=== PATIENT | male | born 1960 | race Caucasian/White ===

== ENCOUNTER 2020-08-17 06:40 | Emergency (ER) | payer OTHER ==
[~2020-08-17] VITALS: Ht 182.9 cm; Wt 90.9 kg
[2020-08-17 06:42] VITALS: BP 142/83
--- NOTE | 2020-08-17 06:49 | PHYS DOC ---
General Adult EDM: Chief Complaint: LACERATION/AVULSION HPI: HPI: 59-year-old male who denies any significant past medical history presents the ED with complaints of laceration to his dominant right dorsal hand that he sustained around 6 AM, just prior to arrival. Patient reports he was at work and smashed his hand between a trash can and a metal grate. Reports no decreased range of motion or brisk bleeding. No prior injury to this hand. Reports tetanus is not up-to-date, has not had this vaccine in over 10 years. No history of diabetes, chronic steroid use or immunocompromise state with poor wound healing complications. Review of Systems: Review of Systems: Constitutional: Denies fever or chills. [] Eyes: Denies change in visual acuity. [] HENT: Denies nasal congestion or sore throat. [] Respiratory: Denies cough or shortness of breath. [] Cardiovascular: Denies chest pain or edema. [] GI: Denies abdominal pain, nausea, vomiting, bloody stools or diarrhea. [] : Denies dysuria. [] Musculoskeletal: Denies back pain or joint pain. [] Integument: Denies skin color changes, diaphoresis Neurologic: Denies headache, focal weakness or sensory changes. [] Endocrine: Denies polyuria or polydipsia. [] Lymphatic: Denies swollen glands. [] Psychiatric: Denies depression or anxiety. [] Heart Score: C/O Chest Pain: No Risk Factors: Risk Factors: DM, Current or recent (<one month) smoker, HTN, HLP, family history of CAD, obesity. Risk Scores: Score 0 - 3: 2.5% MACE over next 6 weeks - Discharge Home Score 4 - 6: 20.3% MACE over next 6 weeks - Admit for Clinical Observation Score 7 - 10: 72.7% MACE over next 6 weeks - Early Invasive Strategies Physical Exam: PE: Constitutional: Well developed, well nourished, no acute distress, non-toxic appearance, borderline hypertension HENT: Normocephalic, atraumatic, Eyes: EOMI, conjunctiva normal, no discharge. Neck: Normal range of motion, supple, Cardiovascular: S1/2 present, regular rhythm Lungs & Thorax: Speaking in full sentences, bilateral equal chest rise, no tachypnea or increased work of breathing Abdomen: soft, no tenderness, Skin: Warm, dry, no erythema, no rash, lei skin (sun exposure) Extremities: no cyanosis, 4 cm V-shaped laceration over patient's dorsum of right hand -no active bleeding, appears to be avulsion injury very superficial, do not suspect extensor tendon injury given complete extension of all 5 fingers/abduction of right thumb, equal radial pulses, Neurologic: Alert and oriented X 3, normal motor function, normal sensory function, no focal deficits noted. [] Psychologic: Affect normal, judgement normal, mood normal. [] EKG: EKG: [] Radiology/Procedures: Radiology/Procedures: []IMAGING REPORT Signed PATIENT: DONALDO SEARS ACCOUNT: [id number] : 1960 LOCATION: ER AGE: 59 SEX: M EXAM STATUS: PRE ER ORD. PHYSICIAN: VIRI BROWN DO REASON: crush injury PROCEDURE: HAND LEFT 3V XR HAND_LEFT 3 VIEWS DATE: 08/17/2020 6:59 AM INDICATION: crush injury, pain COMPARISON: None. FINDINGS: Bones: There is no evidence of acute fracture or dislocation. Joints: The joint spaces are normal. Miscellaneous: None. IMPRESSION: No evidence of acute fracture. Electronically signed by: Dasia Matson MD (08/17/2020 7:10 AM) [id number] DICTATED and SIGNED BY: DASIA MATSON MD DATE: 08/17/20 [id number] Indication: right dorsal hand laceration Procedure: The patient was placed in the appropriate position and anesthesia around the V-shaped laceration with bupivacaine . The area was then copiously irrigated. The laceration was closed with 4-0 and 5-0 nylon, total of 7 sutures. The wound area was then dressed with triple antibiotic ointment and sterile dressing. Total repaired wound length: 4 cm. Other Items: None -patient with full range of motion in flexion/extension of MCP joints (and hand joints including wrist/PIP/DIP/IP) abduction and adduction of the fingers The patient tolerated the procedure . Complications: None. Course & Med Decision Making: Course & Med Decision Making Pertinent Labs and Imaging studies reviewed. (See chart for details) Concern for avulsion laceration over patient's right dominant hand, do not suspect extensor tendon injury given range of motion/physical exam on presentation, before and after local anesthesia, and before and after laceration repair with no decreased extension. Given superficial nature extensor tendons patient was educated to follow-up with hand surgery within 1 week for reassessment. Wound care instructions given with suture removal in 7 to 10 days. Patient tolerated suture repair without any complications. Tetanus updated in ED. Patient also with borderline, asymptomatic hypertension, no chest pain, dyspnea or confusion, per ACEP no indication for rx at this time. Will discharge home with strict ED return precautions were given for rash, fever, worsening pain, purulent drainage or neurologic deficits. Encouraged urgent outpatient follow-up with PMD and hand surgery. Life-threatening processes were considered but are low suspicion at this time, given history, physical exam and ED workup. Pt was educated on all prescription medications and adverse effects. All patient's questions were answered and pt was stable at time of discharge. Life/limb-threatening differential includes but is not limited to, trauma (fracture, dislocation, laceration, compartment syndrome, tendon or ligament i njury), neurovascular injury or deficit, infection (osteomyelitis, abscess, cellulitis, septic arthritis, necrotizing fasciitis), deep vein thrombosis, renal/cardiac/liver disease, medication adverse effect, lymphedema/anasarca, vascular insufficiency or malignancy, I spoken with the patient and her caregivers. I explained the patient's condition, diagnoses and treatment plan based on the information available to me at this time. I have answered the patient and her caregiver's questions and addressed any concerns. The patient and her caregivers have a good understanding of patient's diagnosis, condition and treatment plan as can be expected at this point. Vital signs have been stable. Patient's condition is stable and appropriate for discharge from the emergency department. Patient will pursue further outpatient evaluation with primary care physician or other designated or consulting physician as outlined in the discharge instructions. The patient and/or caregivers are agreeable to this plan of care and follow-up instructions have been explained in detail. The patient and/or caregivers have received these instructions in written form and have expressed an understanding of the discharge instructions. The patient and/or caregivers are aware that any significant change of condition or worsening of symptoms should prompt immediate return to this or the closest emergency department or call to 911. Rob Disclaimer: Dragon Disclaimer: This electronic medical record was generated, in whole or in part, using a voice recognition dictation system. Departure Departure Impression: Primary Impression: Laceration of right hand Additional Impressions: Need for Tdap vaccination Hypertension Disposition: 01 DC HOME SELF CARE/HOMELESS Condition: STABLE Referrals: JAD OSEGUERA MD followup with pcp in 7-10 days for suture removal FOLLOW UP WITH FAMILY MEDICINE: Family Medicine Address: [address] [place] [address] Patient Instructions: Hypertension, Sutured Wound Care, VIS, Tetanus, Diphtheria (Td); Tetanus, Diphtheria, Pertussis (Tdap) - [facility] Additional Instructions: [facility] WITHIN ONE WEEK Appointments may be made with Benny Roberto MD, Rashi Barragan MD, Jan Trevino MD or Jon Luu MD, by calling [phone] EMERGENCY DEPARTMENT GENERAL DISCHARGE INSTRUCTIONS Thank you for coming to [facility] Emergency Department (ED) today and trusting us with you care. We trust that you had a positive experience in our Emergency Department. If you wish to speak to the department management, you may call the Director at [phone]. YOUR FOLLOW UP INSTRUCTIONS ARE FOLLOWS: 1. Do you have a private Doctor? If you do not have a private doctor, please ask for a resource list of physicians or clinics that may be able to assist you with follow up care. 2. The Emergency Physicain has interpreted your x-rays. The X-Ray specialist will also review them. If there is a change in the findings, you will be notified in 48 hours when at all possible. 3. A lab test or culture has been done, your results will be reviewed and you will be notified if you need a change in treatment. ADDITIONAL INSTRUCTIONS AND INFORMATION: 1. Your care today has been supervised by a physician who is specially trained in emergency care. Many problems require more than one evaluation for a complete diagnosis and treatment. We recommend that you schedule your follow up appointment as recommended to ensure complete treatment of you illness or injury. If you are unable to obtain follow up care and continue to have a problem, or if your condition worsens, we recommend that you return to the ED. 2. We are not able to safely determine your condition over the phone nor are we able to give sound medical advice over the phone. For these safety reasons, if you call for medical advice we will ask you to come to the ED for further evaluation. 3. If you have any questions regarding these discharge instructions please call the ED at [phone]. SAFETY INFORMATION: In the interest of safety, wellness, and injury prevention; we encourage you to wear your sealbelt, if you smoke; quite smoking, and we encourage family to use a protective helmet for bicycling and other sporting events that present an increased risk for head injury. IF YOUR SYMPTOMS WORSEN OR NEW SYMPTOMS DEVELOP, OR YOU HAVE CONCERNS ABOUT YOUR CONDITION; OR IF YOUR CONDITION WORSENS WHILE YOU ARE WAITING FOR YOUR FOLLOW UP APPOINTMENT; EITHER CONTACT YOUR PRIMARY CARE DOCTOR, THE PHYSICIAN WHOSE NAME AND NUMBER YOU WERE GIVEN, OR RETURN TO THE ED IMMEDIATELY. VIRI BROWN DO Aug 17, 2020 06:49
--- NOTE | 2020-08-17 07:12 | RAD ---
XR HAND_LEFT 3 VIEWS DATE: 08/17/2020 6:59 AM INDICATION: crush injury, pain COMPARISON: None. FINDINGS: Bones: There is no evidence of acute fracture or dislocation. Joints: The joint spaces are normal. Miscellaneous: None. IMPRESSION: No evidence of acute fracture. Electronically signed by: Ha Matson MD (08/17/2020 7:10 AM) [id number]
[2020-08-17] MEDS ORDERED: NEOMY/BACITR/POLYMYXIN OINT PACKET. TP ONE (07:15)
[2020-08-17] MEDS ORDERED: DIPH,PERTUSS(ACELL),TET VAC/PF 0.5 ML SYRINGE. VAX IM ONE (07:30)
[2020-08-17] MEDS ORDERED: LIDOCAINE 1% Multi-Dose 20 ML VIAL. INJ ONE (07:30)
== END 2020-08-17 08:25 | disposition home or self-care (01) ==
LOC: ER 06:40
DX: S61.411A Laceration without foreign body of right hand, initial encounter (principal); I10 Essential (primary) hypertension; Y29.XXXA Contact with blunt object, undetermined intent, initial encounter; Y93.89 Activity, other specified; Y92.89 Other specified places as the place of occurrence of the external cause; Y99.0 Civilian activity done for income or pay
CPT/HCPCS: 12002; 73130; 90471; 90715; 99283; J3490

== ENCOUNTER → 2021-02-16 | Outpatient (CLI) | payer OTHER ==
[2020-12-31 11:00] VITALS: BP 106/65
[~2021-02-16] MED LIST: ASPI-630 PO; AZIT250T6 PO; BUDE10.22 IH; PRED-220 PO
--- NOTE | 2021-02-16 12:41 | KCIC ---
EXAM: Chest, 2 views. HISTORY: Pneumonia. COMPARISON: 12/29/2020 FINDINGS: 2 views of the chest are obtained. There has been resolution of previously demonstrated rig ht lung consolidated infiltrate. There is suspected bilateral infrahilar atelectasis or scarring. The re is no pleural effusion or pneumothorax. The heart is normal in size. IMPRESSION: Resolution of previously demonstrated right lung consolidated infiltrate. Electronically signed by: Katlyn Farris MD (02/16/2021 12:38 PM) [id number]
== END ==
LOC: KCIC 11:50
PROVIDERS: ATTEND Family Medicine
DX: J18.9 Pneumonia, unspecified organism (principal)
CPT/HCPCS: 71046